=== PATIENT | female | born 1955 | race Caucasian/White ===

== ENCOUNTER 2017-10-02 17:36 | Emergency (ER) | payer BC ==
--- NOTE | 2017-10-02 21:40 | UC ---
Respiratory Complaint HPI - HPI Summary HPI Summary: 62 y/o female presents to the urgent care c/o sore throat, productive cough, chest congestion for the past 3 weeks. Pt reports sore throat is worsen for the past 2 days. 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 She has taken Mucinex to alleviate symptoms w/o any improvement. She is concerned w/ bronchitis and strep. Pain is 5/10 w/ swallowing. Pt deneis fever, SOB, chest pain, abdominal pain, N/V/D - History of Current Complaint Chief Complaint: UCGeneralIllness Stated Complaint: COUGH/BODY ACHES Time Seen by Provider: 10/02/17 21:28 Hx Obtained From: Patient Hx Last Menstrual Period: 3-5 years ?: No Onset/Duration: Gradual Onset, Lasting Weeks - 3 weeks, Still Present, Worse Since - 2 days w/ sore throat Timing: Constant Severity Initially: Mild Severity Currently: Moderate Pain Intensity: 5 - sore throat Pain Scale Used: 0-10 Numeric Character: Cough: Productive, Sputum Description: - yeallowish Aggravating Factors: Recumbent Position Alleviating Factors: OTC Meds Associated Signs And Symptoms: Positive: URI, Nasal Congestion - Risk Factors Pulmonary Embolism Risk Factors: Negative Cardiac Risk Factors: Negative Pseudomonas Risk Factors: Negative Tuberculosis Risk Factors: Negative - Allergies/Home Medications Allergies/Adverse Reactions: Allergies Allergy/AdvReac Type Severity Reaction Status Date / Time sulfamethoxazole Allergy Hives Verified 10/02/17 18:28 [From Bactrim] trimethoprim [From Bactrim] Allergy Hives Verified 10/02/17 18:28 Home Medications: Home Medications Glimepiride 2 mg PO DAILY 10/02/17 [History Confirmed 10/02/17] amLODIPine TAB* [Norvasc 5 mg TAB*] 5 mg PO DAILY 10/02/17 [History Confirmed ] metFORMIN* [Glucophage 500 MG TAB *] 500 mg PO DAILY 10/02/17 [History Confirmed 10/02/17] PMH/Surg Hx/FS Hx/Imm Hx Previously Healthy: Yes Endocrine History: Diabetes Cardiovascular History: Hypertension - Surgical History Surgical History: None - Family History Known Family History: Positive: Hypertension - Social History Occupation: Employed Full-time Lives: With Family Alcohol Use: None Substance Use Type: None Smoking Status (MU): Never Smoked Tobacco - Immunization History Most Recent Influenza Vaccination: NO Review of Systems Constitutional: Negative Skin: Negative Eyes: Negative ENT: Sore Throat, Nasal Discharge, Sinus Congestion Respiratory: Cough - productive Cardiovascular: Negative Gastrointestinal: Negative Genitourinary: Negative Motor: Negative Neurovascular: Negative Musculoskeletal: Negative Neurological: Negative Psychological: Negative Is Patient Immunocompromised?: No All Other Systems Reviewed And Are Negative: Yes Physical Exam Triage Information Reviewed: Yes Vital Signs: Initial Vital Signs Temp 98.4 F 10/02/17 18:25 Pulse 88 10/02/17 18:25 Resp 14 10/02/17 18:25 BP 145/88 10/02/17 18:25 Pulse Ox 100 10/02/17 18:25 - Additional Comments Vital Signs Reviewed: Yes General: well developed, well nourished female sitting in the examining table w/ o any apparent distress Eyes: Positive: Conjunctiva Clear - PERRLA, EOMI, fundi grossly normal ENT: Positive: Normal ENT inspection, Hearing grossly normal, Pharynx normal, Nasal congestion - edematous and erythematous nasal mucosa, Nasal drainage - yellowish drainage, TMs normal. Negative: Tonsillar swelling, Tonsillar exudate Neck: Positive: Supple, Nontender, No Lymphadenopathy Respiratory: no orthopnea or dyspnea. Able to speak in full sentences, no retractions or accessory muscle use, no tripod position, stridor, or head bobbing. Positive breath sounds, B/L posterior upper lungs w/ scattered ronchi. no wheezes, rales. Cardiovascular: Positive: RRR, No Murmur, Pulses Normal, Brisk Capillary Refill Abdomen Description: Positive: Nontender, No Organomegaly, Soft. Negative: CVA Tenderness (R), CVA Tenderness (L) Bowel Sounds: Positive: Present Musculoskeletal Exam: Normal Musculoskeletal: Positive: Strength Intact, ROM Intact, No Edema Neurological Exam: Normal Psychological Exam: Normal Skin Exam: Normal UC Diagnostic Evaluation - Laboratory O2 Sat by Pulse Oximetry: 100 Respiratory Course/Dx - Course Course Of Treatment: 62 y/o female presents to the urgent care c/o sore throat, productive cough, chest congestion for the past 3 weeks. Pt reports sore throat is worsen for the past 2 days. 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 She has taken Mucinex to alleviate symptoms w/o any improvement. She is concerned w/ bronchitis and strep. Pain is 5/10 w/ swallowing. Pt deneis fever, SOB, chest pain, abdominal pain, N/V/D. Hx obtained. Pt w/ B/L posterior upper lungs w/ scattered rhonchi and phryngitis on examination. RApdi strep ordered: negative. Pt Rx Z-nehal PO and Tessalon tabs PO to alleviate bronchospasm. Pt advised to increase fluid intake and eat well. if not improvement or worsening of symptoms to return to the urgent care or f/u with PCP for further management. Pt's BP is elevated today advised to decrease salt in diet, monitor BP and f/u with PCP for further management. Pt understood and agreed with plan of care - Differential Dx/Diagnosis Differential Diagnosis/HQI/PQRI: Asthma, Bronchitis, Influenza, Lower Resp Infection, Sinusitis, Other - pharyngitis Provider Diagnoses: 1- Acute bronchitis. 2-Cough. 3- Uncontrolled HTN Discharge - Discharge Plan Condition: Stable Disposition: HOME Prescriptions: Azithromycin TAB* [Zithromax TAB (Z-NEHAL) 250 mg #6 tabs] 250 mg PO DAILY #4 tab Benzonatate CAP* [Tessalon 100 MG CAP*] 100 mg PO TID PRN #21 cap PRN Reason: Cough Patient Education Materials: Acute Bronchitis (ED), Low-Sodium Diet (ED) Referrals: Kanwal Gomez MD [Primary Care Provider] - 3 Days Additional Instructions: 1-Please take full course of antibiotic to avoid resistance. 2-Take Tessalon PO tabs as directed to alleviate cough. Increase fluid intake, rest and eat well. 3- If symptoms do not improve or worsen or your develop SOB with fever and severe wheezing please go immediately to the ER further evaluation and treatment. 4- F/u with your PCP in 3 days for further management. 5-Your BP is elevated today. please decrease salt in your diet, monitor BP and if it continues to be elevated please f/u with your PCP for further management
[2017-10-02] MEDS ORDERED: Azithromycin TAB* 250 MG PO ONE (21:54)
[2017-10-02 21:56] VITALS: BP 141/90
== END 2017-10-02 22:08 | disposition home or self-care (01) ==
LOC: UCCORT 17:36
DX: J20.9 Acute bronchitis, unspecified (principal); R05 Cough; I10 Essential (primary) hypertension; E11.9 Type 2 diabetes mellitus without complications; Z79.84 Long term (current) use of oral hypoglycemic drugs
CPT/HCPCS: 87651; 99202; A9270-GY; G0463